=== PATIENT | female | born 2000 | race Caucasian/White ===

== ENCOUNTER 2018-06-12 17:48 | Outpatient (CLI) | payer OTHER | END 2018-06-12 20:11 | disposition home or self-care (01) | LOC: OBS/DEL 17:48 | DX: O23.593 Infection of other part of genital tract in pregnancy, third trimester (principal); N76.0 Acute vaginitis; O60.03 Preterm labor without delivery, third trimester; Z34.03 Encounter for supervision of normal first pregnancy, third trimester ==